=== PATIENT | female | born 1945 | race Caucasian/White ===

== ENCOUNTER 2018-01-13 07:32 | Emergency (ER) | payer OTHER ==
[~2018-01-13] VITALS: Ht 152.4 cm; Wt 65.3 kg
[2018-01-13] MEDS ORDERED: LOTREL 5-20 MG1 CAP (07:54)
[2018-01-13] MEDS ORDERED: GLIPIZIDE ER5 MG (07:54)
[2018-01-13] MEDS ORDERED: PENTOXIFYLLINE400 MG (07:55)
[2018-01-13] MEDS ORDERED: ECOTRIN325 M1 (07:55)
[2018-01-13] MEDS ORDERED: HYDROCHLOROTH12.5 M1 (07:55)
[2018-01-13] MEDS ORDERED: TOPROL XL25 MG (07:55)
== END 2018-01-13 15:01 | disposition home or self-care (01) ==
LOC: ER 07:32
DX: K29.60 Other gastritis without bleeding (principal)

== ENCOUNTER 2018-09-01 12:13 | Emergency (ER) | payer OTHER ==
[~2018-09-01] VITALS: Ht 152.4 cm; Wt 68.0 kg
[~2018-09-01 12:13] MED LIST: ECOTRIN325 M1; GLIPIZIDE ER5 MG; HYDROCHLOROTH12.5 M1; LOTREL 5-20 MG1 CAP; PENTOXIFYLLINE400 MG; TOPROL XL25 MG
== END 2018-09-01 21:49 | disposition home or self-care (01) ==
LOC: ER 12:13
DX: K52.9 Noninfective gastroenteritis and colitis, unspecified (principal)

== ENCOUNTER → 2019-04-04 | Outpatient (CLI) | payer OTHER | END | disposition home or self-care (01) | LOC: MRI 09:54 | DX: M25.562 Pain in left knee (principal) | CPT/HCPCS: 73721 ==

== ENCOUNTER 2021-02-25 09:19 | Inpatient (IN) | payer OTHER ==
[~2021-02-25] VITALS: Ht 152.4 cm; Wt 61.2 kg
[~2021-02-25 09:19] MED LIST changes: -HYDROCHLOROTH12.5 M1; +HYDRODIURIL12.5 MG
--- NOTE | 2021-02-25 09:35 | NUR ---
SE RECIBE PTE ALERTA Y ORIENTADA X3 LA CUAL REFIERE TENER SANGR[place]O AL EVACUAR HOY.
--- NOTE | 2021-02-25 10:18 | NUR ---
PTE ALERTA Y ORIENTADA POR HUONG ESFERAS CON BUEN PATRON RESPIRATORIO. SE LE ORIENTA A PTE SOBRE TRATAMIENTO A SEGUIR, DILIA REFIERE ENTENDER. SE LE COLECTA MUESTRAS, SE CANALIZA Y SE ADMINISTRA IV FLUIDS. PENDIENTE FECAL LEUKOCYTE Y U/A.
[2021-02-26] MEDS ORDERED: ATORVASTATIN CA20 MG (08:07)
[2021-02-26] MEDS ORDERED: GABAPENTIN300 M2 (08:07)
[2021-02-26] MEDS ORDERED: DICLOFENAC SODI50 MG (08:08)
== END 2021-03-04 19:42 | disposition home or self-care (01) | DRG 395 ==
LOC: ER 09:19 → SURG 18:32 → SEC-K 18:32 → SURG 02-26 03:46
PROVIDERS: ADMIT Internal Medicine; ATTEND Internal Medicine
PROC: BW2110Z Computerized Tomography (CT Scan) of Abdomen and Pelvis using Low Osmolar Contrast, Unenhanced and Enhanced (ICD-10-PCS; principal; 2021-02-25)
PROC: B54DZZZ Ultrasonography of Bilateral Lower Extremity Veins (ICD-10-PCS; 2021-03-03)
DX: K62.89 Other specified diseases of anus and rectum (principal); K29.60 Other gastritis without bleeding; M25.472 Effusion, left ankle; M25.572 Pain in left ankle and joints of left foot; I87.2 Venous insufficiency (chronic) (peripheral); Z20.822 Contact with and (suspected) exposure to COVID-19